=== PATIENT | female | born 1990 | race Two or more races ===

== ENCOUNTER 2024-12-19 08:06 | Emergency (ER) | payer MEDICAID, SELFPAY ==
[2024-12-19 08:18] VITALS: BP 135/73; PULSE 67; RESP 16; TEMP 37.1; O2SAT 97; BMI 38.6
--- NOTE | 2024-12-19 08:41 | EDNOTE_ITS ---
<Statement entered by Polina Gracia MD - 12/19/24 16:20> As co-signing physician, I was present and available for consult prn. I concur with the plan and care as documented by the midlevel provider. ED Skin Abcess FB-RME/HPI General Chief complaint: Skin/Abscess/Foreign Body Stated complaint: LEFT SIDED FACIAL SWELLING X AM Time Seen by Provider: 12/19/24 08:15 Source: patient Arrival date/time: 12/19/24 08:06 This is a 34-year-old female presents to the emergency department with complaints of left-sided facial swelling x 1 morning. She reports her left sided face was tingling and mildly itchy this morning woke up with cheek swelling radiating to under left eyelid. Reports no injury, no fever, no signs of infection. Did not take any medication prior to ED arrival. Mode of arrival: ambulatory Limitations: no limitations Related Data Previous Rx's ?Medication ?Instructions ?Recorded cephalexin 500 mg capsule 500 mg PO TID 7 days #21 cap s 12/19/24 diphenhydramine HCl 25 mg capsule 25 mg PO TID PRN all ergy symptoms 12/19/24 (Benadryl) #20 caps Allergies Allergy/AdvReac Type Severity Reaction Status Date / Time peach Allergy Unknown RASH Verified 12/19/24 08:09 Review of Systems Review of Systems Systems Reviewed: All systems reviewed, normal except as documented Narrative Review of Systems: Gen: No fever, no chills, no weight loss EYES: No discharge, no visual changes, no pain HEENT: No ear pain, no congestion, no sore throat, + left facial swelling PULM: No shortness of breath, no cough, no congestion CV: No chest pain, no dyspnea on exertion, no palpitations GI: No nausea, no vomiting, no diarrhea, no pain, no constipation : No frequency, no urgency,? no dysuria Musc/skel: No joint pain, no back pain Skin: No rash? Psyc: No hallucinations, no depression Heme/Lymph: No easy bleeding or bruising tendencies Neuro: No weakness, no headache ED Exam General Limitations: Present no limitations General appearance: Present alert and in no apparent distress Head Head exam: Present atraumatic Eye Eye exam: Present normal appearance, PERRL, EOMI and other (mild left facial swelling no abscess formations) ENT ENT exam: Present normal exam, normal oropharynx and mucous membranes moist Neck Neck exam: Present normal inspection, full ROM and trachea midline Chest Chest inspection: Present normal inspection and symmetric chest wall rise Respiratory Respiratory exam: Present normal lung sounds bilaterally Cardiovascular Cardiovascular exam: Present regular rate, normal rhythm and normal heart sounds Abdominal Exam Abdominal exam: Present soft and normal bowel sounds Extremities Exam Extremities exam: Present normal inspection and full ROM Back Exam Back exam: Present normal inspection and full ROM Neurological Exam Neurological exam: Present alert, oriented X3 and CN II-XII intact Psychiatric Psychiatric exam: Present normal affect and normal mood Skin Skin exam: Present warm, dry, intact and normal color Course Quality Measures none Orders Category Date Time Status Dexamethasone Inj [Decadron Inj] Med 12/19/24 08:30 Discontinued 10 mg IV X1 ONE DiphenhydrAMINE [Benadryl] Med 12/19/24 08:46 Discontinued 25 mg PO X1 ONE Vital Signs Vital signs: Vital Signs Temperature 98.7 F 12/19/24 08:18 Pulse Rate 67 12/19/24 08:18 Respiratory Rate 16 12/19/24 08:18 Blood Pressure 135/73 H 12/19/24 08:18 Pulse Oximetry (%) 97 12/19/24 08:18 Oxygen Delivery Method Room Air 12/19/24 08:18 Skin / Abscess / Foreign Body MDM Narrative MDM Narrative:: Advised patient we will treat as possible infection however can be allergic in nature. Gave 1 dose of dexamethasone, and Benadryl. Advised to start Keflex at home. Strict follow-up with PCP in 24 to 48 hours. Strict ER precautions given. Patient data External records reviewed:: [facility] previous records Clinical information provided by:: patient Social determinants that could affect healthcare access:: none Patient has the following chronic illnesses:: None How is presenting disease/condition affected by chronic disease/condition?: no chronic disease Evaluation data The following diagnostics were reviewed and interpreted by me:: other (specify) Lab and/or radiology exams considered but not ordered:: No Interpretation Summary: Not applicable Medications / Prescriptions Medications or Prescriptions considered but not ordered:: No Medication administrations:: Medication Administration History Discontinued Medications Dexamethasone Sodium Phosphate (Dexamethasone Sod Phos Inj 10 Mg/Ml Vial) 10 mg IV X1 ONE Stop: 12/19/24 08:31 Last Admin: 12/19/24 08:47 Dose: 10 mg Documented By: RUBI Comments: Medication give IM LEFT Deltoid per providers orders Diphenhydramine HCl (Diphenhydramine 25 Mg Capsule) 25 mg PO X1 ONE Stop: 12/19/24 08:47 Last Admin: 12/19/24 08:52 Dose: 25 mg Documented By: RUBI All medications administered and effective Consultations Consultation(s) initiated? (list below): No Diagnosis Skin/Abscess Differential Diagnosis: abscess of skin or subcutaneous tissue, urticaria, cellulitis, eczema, insect bites and contact dermatitis Most likely diagnosis given after review of the tests above:: Facial cellulitis Admission Indicated Admission indicated?: not indicated Admission Request Was there a request for admission?: No Disposition Plan Disposition Plan: Discharge Discharge Attestation Discharge Attestation: The patient and all family members were given an opportunity to ask questions and understood the discharge instructions. Discharge instructions specifically effects, indications for sooner follow up or return to the emergency department, and the expected course of current diagnosis. Patient condition: Stable Discharge Plan Plan Patient Disposition: HOME (Self Care) Patient condition on transfer: Stable Prescriptions/Referrals Prescriptions/Med Rec: New cephalexin 500 mg capsule 500 mg PO TID 7 Days Qty: 21 0RF diphenhydramine HCl [Benadryl] 25 mg capsule 25 mg PO TID PRN (Reason: allergy symptoms) Qty: 20 0RF Problem List Clinical Impression: Facial cellulitis Patient/Caregiver Discharge Instructions Discharge Activity: activity as tolerated Education Materials: ED Cellulitis, Facial Additional Instructions: We will treat you for infection. However you can also take Benadryl and will given a shot of steroids in case this is a allergic reaction. Please attempt good oral hygiene Make a follow-up appointment with your PCP on Sunday. Strict ER precautions to return if there is any worsening symptoms change in condition. Print Language: Romanian Stand Alone Forms: [employer] Award Info., Work/School Release, Patient Portal Info Letter REJI/ESTEFANIA Supervising Physician REJI/ESTEFANIA Supervising Physician: [place]
[2024-12-19] MEDS: DEXAMETHASONE SOD PHOS INJ 10 MG/ML VIAL IV (08:47)
[2024-12-19] MEDS: DiphenhydrAMINE 25 MG CAPSULE PO (08:52)
== END 2024-12-19 09:29 | disposition home or self-care (01) ==
PROVIDERS: Emergency Provider Emergency Medicine; PCP Family Medicine
DX: L03.211 Cellulitis of face (principal)
CPT/HCPCS: 96372; 99283; J1100; A9270